=== PATIENT | male | born 1980 ===

== ENCOUNTER 2016-12-12 11:02 | Emergency (ER) | payer OTHER ==
[2016-12-12 11:10] VITALS: BP 124/80; PULSE 77; TEMP 98.1; O2SAT 99
--- NOTE | 2016-12-12 11:55 | C.PDOC ---
History Of Present Illness 36y/o male presents to the ED for evaluation of a small, painless lump noted on right arm about a few days ago. Patient recently noticed the lump but does not know how long it has been present. He denies fever, chills, trauma/injury to the affected area. Time Seen by Provider: 12/12/16 11:51 Chief Complaint (Nursing): Abnormal Skin Integrity History Per: Patient History/Exam Limitations: no limitations Onset/Duration Of Symptoms: Days Location Of Injury: Right: Arm Quality Of Symptoms: denies: Painful Additional History Per: Patient Past Medical History Reviewed: Historical Data, Nursing Documentation, Vital Signs Vital Signs: Last Vital Signs Temp 98.1 F 12/12/16 11:08 Pulse 77 12/12/16 11:08 Resp 18 12/12/16 12:14 BP 124/80 12/12/16 11:08 Pulse Ox 99 12/12/16 14:09 - Medical History PMH: No Chronic Diseases Surgical History: No Surg Hx Family History: States: Unknown Family Hx - Social History Hx Tobacco Use: No Hx Alcohol Use: No Hx Substance Use: No - Immunization History Hx Tetanus Toxoid Vaccination: No Hx Influenza Vaccination: No Hx Pneumococcal Vaccination: No Review Of Systems Except As Marked, All Systems Reviewed And Found Negative. Constitutional: Negative for: Fever, Chills Skin: Positive for: Other (+painless lump on right upper arm) Physical Exam - Physical Exam Appears: Non-toxic, No Acute Distress Skin: Normal Color, Warm, Dry, Other (1x2cm firm, free-moving, nontender nodule to posterior aspect of right distal tricep region. ) Head: Atraumatic Eye(s): bilateral: Normal Inspection Oral Mucosa: Moist Neck: Supple Extremity: Normal ROM, No Tenderness (RUE), Capillary Refill (less than 2 seconds ), No Deformity, No Swelling Neurological/Psych: Oriented x3, Normal Speech, Normal Cognition, Normal Motor, Normal Sensation Gait: Steady ED Course And Treatment O2 Sat by Pulse Oximetry: 99 (on RA) Pulse Ox Interpretation: Normal Medical Decision Making Medical Decision Making: firm, freely movable, non-tender chronic SQ mass/nodule, likely lipoma refer [facility] to [facility] biopsy/removal. Disposition Doctor Will See Patient In The: Office Counseled Patient/Family Regarding: Studies Performed, Diagnosis - Disposition Referrals: [facility] [Outside] Francisco Maravilla MD [Staff Provider] - Polo Hollins MD [Medical Doctor] - Disposition: HOME/ ROUTINE Disposition Time: 11:54 Condition: GOOD Additional Instructions: sigue con dorsey medico o' un [place] ( Dr. Izaguirre) O' presenta en [facility] para considerar biopsia o' saccarlo Instructions: Lipoma (ED) Print Language: TELUGU - Clinical Impression Clinical Impression: Lipoma of right upper extremity - Scribe Statement The provider has reviewed the documentation as recorded by the Scribe (Cecily Morales) Provider Attestation: All medical record entries made by the Scribe were at my direction and personally dictated by me. I have reviewed the chart and agree that the record accurately reflects my personal performance of the history, physical exam, medical decision making, and the department course for this patient. I have also personally directed, reviewed, and agree with the discharge instructions and disposition.
[2016-12-12 12:19] VITALS: RESP 18
== END 2016-12-12 12:19 | disposition home or self-care (01) ==
LOC: C.ER 11:02
DX: D17.21 Benign lipomatous neoplasm of skin and subcutaneous tissue of right arm (principal)